=== PATIENT | male | born 1960 | race Caucasian/White ===

== ENCOUNTER → 2017-03-26 | Outpatient (REF) ==
--- NOTE | 2017-03-26 10:02 | Diagnostic Imaging Report ---
PA view of the chest Indication: Annual exam No prior studies are available for comparison Findings: The lungs are clear. Normal variation of an azygos fissure is seen. The heart size is normal. There is no effusion or pneumothorax The mediastinum and daisha appear unremarkable. Impression: Unremarkable study. Dictated by: Dictated on workstation # [id number]
== END | disposition home or self-care (01) ==
LOC: OCC 09:32
PROVIDERS: ATTEND Nurse Practitioner Family
CPT/HCPCS: 71010

== ENCOUNTER → 2018-03-18 | Outpatient (REF) ==
--- NOTE | 2018-03-18 11:27 | Diagnostic Imaging Report ---
INDICATION: Occupational physical, history of smoking. PA chest obtained at 09:33 a.m. and compared to 03/26/2017. Heart and mediastinal silhouette are normal in appearance. The lungs are clear. There is no pneumothorax or pleural fluid. There is an azygos lobe in the right upper lobe. IMPRESSION: No acute process in the chest. No change from the prior study. Dictated by: Dictated on workstation # [id number]
== END | disposition home or self-care (01) ==
LOC: MERGE 09:04 → OCC 09:04
PROVIDERS: ATTEND Nurse Practitioner Family
CPT/HCPCS: 71045